=== PATIENT | male | born 1960 | race Caucasian/White ===

== ENCOUNTER 2018-03-25 16:07 | Emergency (ER) | payer OTHER, MEDICAID, SELFPAY ==
--- NOTE | 2018-03-25 16:14 | ED_ITS ---
HPI - Head Injury <JOSÉ Bear - Last Filed: 03/25/18 22:10> General Chief complaint: Wound/Laceration Stated complaint: LACERATION TOP OF HEAD Time Seen by Provider: 03/25/18 16:13 Source: patient Mode of arrival: ambulatory Limitations: no limitations History of Present Illness HPI Narrative: 57-year-old healthy male that is a former smoker here for complaint of laceration to the top of his scalp. He states that just prior to arrival he was cleaning out his car and accidentally brushed his head up against his glove box. He reported having bleeding that he noticed shortly after this. He denies any loss of consciousness. No nausea or vomiting. Unknown last tetanus shot. He denies any other injuries. No neck pain. No other concerns or complaints at this time. Bleeding is controlled at this time. Complaint: head injury Review of Systems <JOSÉ Bear - Last Filed: 03/25/18 22:10> Constitutional Denies chills, Denies fever(s), Denies lethargy and Denies weakness Eyes Denies change in vision, Denies eye discharge, Denies irritation and Denies loss of vision ENT Ears, Nose, Mouth, and Throat: Denies change in voice, Denies neck pain and Denies sore throat Cardiovascular Denies chest pain, Denies irregular heart rhythm, Denies lightheadedness, Denies palpitations, Denies dyspnea, Denies dyspnea on exertion and Denies orthopnea Respiratory Denies cough, Denies dyspnea, Denies dyspnea on exertion and Denies wheezing Gastrointestinal Gastrointestinal: Denies abdominal pain, Denies change in bowel habits, Denies diarrhea, Denies nausea and Denies vomiting Genitourinary Denies hematuria, Denies flank pain, Denies urinary incontinence and Denies urinary urgency Musculoskeletal Denies neck pain Integumentary/Breasts Denies pruritus, Denies erythema, Denies rash and Denies wounds Neurologic Denies confusion, Denies loss of vision and Denies weakness Comments: Minor head injury Psychiatric Denies anxiety, Denies confusion, Denies depression, Denies homicidal ideation and Denies suicidal ideation Endocrine Denies palpitations Hematologic/Lymphatic Denies easy bruising Allergic/Immunologic Denies wheezing Exam <JOSÉ Bear - Last Filed: 03/25/18 22:10> Initial Vital Signs Initial Vital Signs: Vital Signs Temperature 97.4 F L 03/25/18 16:19 Pulse Rate 69 18 16:19 Respiratory Rate 18 03/25/18 16:19 Blood Pressure 123/71 03/25/18 16:19 Pulse Oximetry 100 03/25/18 16:19 Const General: cooperative and well developed Nutritional Appearance: well nourished Orientation: alert, awake, oriented x3 and not confused [facility] Head: normocephalic, No Lewis's sign, No contusion, No hematoma, laceration, No palpable skull fracture, No raccoon eyes, scalp lesion and No scalp tenderness Mouth: oral mucosae normal and moist mucous membranes Eyes Conjunctivae: conjunctivae normal Sclera: sclerae normal Pupils: PERRL EOM: EOM intact bilaterally Neck Neck: normal visual inspection, trachea midline, No lymphadenopathy, No midline deformity and No JVD Lymphatic: No lymphedema Resp Effort & Inspection: normal respiratory effort, able to speak in complete sentences, no respiratory distress and no use of accessory muscles Auscultation: clear to auscultation bilaterally, no rales, no rhonchi and no wheezes Cardio Rate: regular rate Rhythm: regular rhythm Heart Sounds: no click, no gallops, no murmurs and no rubs Skin General: no rashes or lesions noted, No jaundice and No petechiae Neuro General: alert, oriented x3, gait normal and no focal motor deficits Speech: speech normal <Alexa Olguin DO - Last Filed: 03/26/18 07:38> Initial Vital Signs Initial Vital Signs: Vital Signs Temperature 97.4 F L 03/25/18 16:19 Pulse Rate 69 03/25/18 16:19 Respiratory Rate 18 18 16:19 Blood Pressure 123/71 03/25/18 16:19 Pulse Oximetry 100 03/25/18 16:19 Procedures <JOSÉ Bear - Last Filed: 03/25/18 22:10> Laceration Repair Laceration 1: Site: scalp Size (cm): 1.5 Description: linear Depth: simple, single layer Pre-repair: wound explored and irrigated extensively Skin layer closed with: other (Laceration top of scalp was closed with 2 pietro) Course <JOSÉ Bear - Last Filed: 03/25/18 22:10> Vital Signs - 8 hr 03/25/18 16:19 Temperature 97.4 F L Pulse Rate 69 Respiratory Rate 18 Blood Pressure 123/71 Pulse Oximetry 100 <Alexa Olguin DO - Last Filed: 03/26/18 07:38> Vital Signs - 8 hr 03/25/18 16:19 Temperature 97.4 F L Pulse Rate 69 Respiratory Rate 18 Blood Pressure 123/71 Pulse Oximetry 100 MDM - Head Injury <JOSÉ Bear - Last Filed: 03/25/18 22:10> [facility] Narrative Medical decision making narrative: Laceration to top of scalp was irrigated well no foreign bodies appreciated. Wound was closed with 2 pietro. Patient tolerated well. Tetanus was updated in the emergency room today. Wound dressed with bacitracin. [place] removed in 10 days. Dress wound daily with bacitracin. For any worsening symptoms return to the emergency room. Head injury instructions are provided with warning signs return to the emergency room. [id number] Tylenol or Motrin as needed for any discomfort. Discharge Plan Departure Patient Disposition: Home Clinical Impression: Laceration of scalp Discharge Date/Time: 03/25/18 17:05 Interventions: ED Discharge Assessment Last Done: 03/25/18 17:38 Instructions: DI for Laceration Repair -- Pietro, DI for Laceration Repair of the Scalp, Closed Head Injury Activity Restrictions/Additional Instructions: Tetanus was updated in the emergency room today. Laceration to top of scalp was cleansed and closed with 2 pietro. The pietro will need to be removed in approximately 10 days. Dress wound area daily with bacitracin antibiotic ointment. Keep wound area clean and dry for 24 hr. After 24 hr may shower briefly. No swimming no hot tubs or baths. After shower dress wound with bacitracin. Use [id number] Tylenol or Motrin as needed for any discomfort. For any worsening symptoms return to the emergency room. Head injury instructions are provided with warning signs to return to the emergency room. Referrals: [facility] [Provider Group] <Alexa Olguin DO - Last Filed: 03/26/18 07:38> Cosign ED Attending Pippa[place] Attestation: I was immediately available in the department for consultation. Documentation has been reviewed. I agree with assessment and plan.
[2018-03-25 16:19] VITALS: BP 123/71; PULSE 69; RESP 18; TEMP 36.3; O2SAT 100; BMI 24.3
[2018-03-25] MEDS: DIPHTH,PERTUSS(ACELL),TET VAC 0.5 ML SYRINGE IM (16:33)
== END 2018-03-25 17:05 | disposition home or self-care (01) ==
PROVIDERS: Emergency Provider Nurse Practitioner Family
DX: S01.01XA Laceration without foreign body of scalp, initial encounter (principal); W26.8XXA Contact with other sharp object(s), not elsewhere classified, initial encounter
CPT/HCPCS: 90471; 90715; 99283; 99291